=== PATIENT | male | born 1970 | race African-American/Black ===

== ENCOUNTER 2020-12-11 18:32 | Emergency (ER) | payer OTHER, MEDICAID ==
[~2020-12-11] VITALS: Ht 167.6 cm; Wt 77.0 kg
[2020-12-11 19:12] LABS: BASOPHILS % 0.3 % (0.0-2.0); EOSINOPHILS % 1.1 % (0.0-5.0); HEMATOCRIT. 37.8 % (42.0-52.0); LYMPHOCYTES % 9.6 % (20.0-50.0); MEAN CORPUSCULAR HEMOGLOBIN 31.5 pg (28.0-32.0); MEAN CORPUSCULAR VOLUME 91.7 fL (80.0-94.0); MEAN PLATELET VOLUME 9.4 fl (7.4-10.4); MONOCYTES % 4.6 % (2.0-8.0); NEUTROPHILS % 84.4 % (40.0-76.0); PLATELET 152 x1000/uL (130-400); RED BLOOD CELL COUNT 4.13 mill/uL (4.7-6.1); RED CELL DISTRIBUTION WIDTH 14.4 % (11.6-14.6)
[2020-12-11 19:26] LABS: CHLORIDE 104 mEq/L (98-107)
[2020-12-11 19:30] VITALS: BP 154/94
[2020-12-11 19:30] LABS: ETHANOL BLOOD < 10 mg/dL
[2020-12-11] MEDS ORDERED: POTASSIUM CHLORIDE 20MEQ TABLET SR PO ONE (19:30)
[2020-12-11] MEDS ORDERED: DEXTROSE 50% WATER 50ML SYRINGE IV NR (19:30)
[2020-12-11] MEDS ORDERED: MAGNESIUM OXIDE 400MG TABLET PO SCH (19:30)
== END 2020-12-11 20:15 | disposition left against medical advice (07) ==
LOC: ER 18:32 → CANBEDREQ 21:49
DX: E11.649 Type 2 diabetes mellitus with hypoglycemia without coma (principal); R41.0 Disorientation, unspecified
CPT/HCPCS: 36415; 80053; 80320; 82962; 84484; 85025; 93005; 99284; G0480